=== PATIENT | female | born 1980 | race Caucasian/White ===

== ENCOUNTER 2017-08-05 09:55 | Emergency (ER) | payer BC ==
[2017-08-05 10:21] VITALS: BP 124/82
--- NOTE | 2017-08-05 10:59 | UC ---
Eye Complaint HPI - HPI Summary HPI Summary: TWO DAYS OF LEFT EYE CRUSTING, DISCHARGE REDNESS. HAD STREP THROAT TWO WEEKS AGO , WHICH RESOLVED. NO CHANGES IN VISION. NO PAIN WITH EYE MOVEMENT. NO TRAUMA. NO CONTACT LENS USAGE. - History of Current Complaint Chief Complaint: UCEye Stated Complaint: LEFT EYE COMPLAINT Time Seen by Provider: 08/05/17 10:40 Hx Obtained From: Patient Hx Last Menstrual Period: "I'm not very regular ... due for it." Onset/Duration: Gradual Onset, Lasting Hours Severity Initially: Mild Severity Currently: Mild Location of Injury: Conjunctiva Aggravating Factor(s): Nothing Alleviating Factor(s): Nothing Associated Signs And Symptoms: Positive: Drainage (Purulent) - Risk Factors Penetrating Injury Risk Factor: Negative Acute Glaucoma Risk Factors: Negative Optic Artery Occlusion Risk Factors: Negative - Allergies/Home Medications Allergies/Adverse Reactions: Allergies Allergy/AdvReac Type Severity Reaction Status Date / Time No Known Allergies Allergy Verified 08/05/17 10:16 PMH/Surg Hx/FS Hx/Imm Hx Previously Healthy: Yes - Surgical History Surgical History: Yes Surgery Procedure, Year, and Place: C-Sections, 2016 2006, [place]; Appendectomy, ~1997, [place] - Family History Known Family History: Negative: Diabetes Family History: no issues in biological family lineage - Social History Occupation: Works From/At Home Lives: With Family Alcohol Use: None Substance Use Type: None Smoking Status (MU): Never Smoked Tobacco - Immunization History Most Recent Influenza Vaccination: Not the 2016/2017 Season Review of Systems Constitutional: Negative Skin: Negative Eyes: Drainage, Eye Redness ENT: Negative Respiratory: Negative Cardiovascular: Negative Gastrointestinal: Negative Genitourinary: Negative Motor: Negative Neurovascular: Negative Musculoskeletal: Negative Neurological: Negative Psychological: Negative Is Patient Immunocompromised?: No All Other Systems Reviewed And Are Negative: Yes Physical Exam Triage Information Reviewed: Yes Appearance: Well-Appearing, No Pain Distress, Well-Nourished Vital Signs: Initial Vital Signs Temp 97.9 F 08/05/17 10:15 Pulse 96 08/05/17 10:15 Resp 18 08/05/17 10:15 BP 124/82 08/05/17 10:15 Vital Signs Reviewed: Yes Eyes: Positive: Conjunctiva Inflamed - LEFT, Discharge ENT: Positive: Normal ENT inspection, Pharynx normal, TMs normal Dental Exam: Normal Neck exam: Normal Neck: Positive: Supple, Nontender, No Lymphadenopathy Respiratory Exam: Normal Respiratory: Positive: Chest non-tender, Lungs clear, Normal breath sounds, No respiratory distress, No accessory muscle use Cardiovascular Exam: Normal Cardiovascular: Positive: RRR, No Murmur, Pulses Normal Abdominal Exam: Normal Musculoskeletal Exam: Normal Musculoskeletal: Positive: Strength Intact, ROM Intact Neurological Exam: Normal Psychological Exam: Normal Skin Exam: Normal Eye Complaint Course/Dx - Differential Dx/Diagnosis Differential Diagnosis/HQI/PQRI: Conjunctivitis Provider Diagnoses: LEFT CONJUNCTIVITIS Discharge - Discharge Plan Condition: Stable Disposition: HOME Prescriptions: Tobramycin 0.3% OPHTH.TAMI* 1 drop LEFT EYE Q4H #1 btl Patient Education Materials: Conjunctivitis (ED) Referrals: Marisol Perez MD [Primary Care Provider] -
== END 2017-08-05 11:03 | disposition home or self-care (01) ==
LOC: UCCORT 09:55
DX: H10.32 Unspecified acute conjunctivitis, left eye (principal)
CPT/HCPCS: 99212; G0463

== ENCOUNTER 2017-12-29 15:22 | Emergency (ER) | payer BC ==
[2017-12-29 16:05] VITALS: BP 134/83
--- NOTE | 2017-12-29 16:29 | UC ---
Complaint Female HPI - HPI Summary HPI Summary: PATIENT REPORTS 2 WEEKS OF URINARY FREQUENCY AND URGENCY. OVER THE LAST COUPLE OF DAYS HAS DEVELOPED BILATERAL LOW BACK PAIN THAT RADIATES AROUND THE FRONT TO HER LOWER ABDOMEN. SHE DENIES DYSURIA. NO FEVER OR NAUSEA. PATIENT HAD SURGICAL STERILIZATION AT HER IN 2015 SO NO CHANCE OF . NO H/ O KIDNEY STONES. - History Of Current Complaint Chief Complaint: UCGU Stated Complaint: URINARY/BACK PAIN Time Seen by Provider: 12/29/17 16:13 Hx Obtained From: Patient Hx Last Menstrual Period: HAS NOT HAD A PERIOD SINCE BEFORE GETTING . 21 MONTH OLD Onset/Duration: Gradual Onset, Lasting Weeks, Still Present Timing: Constant Severity Initially: Moderate Severity Currently: Moderate Pain Intensity: 6 Pain Scale Used: 0-10 Numeric Character: Sharp Aggravating Factor(s): Nothing Alleviating Factor(s): Nothing Associated Signs And Symptoms: Positive: Back Pain. Negative: Fever, Nausea, Vomiting(# Of Episodes =) - Allergies/Home Medications Allergies/Adverse Reactions: Allergies Allergy/AdvReac Type Severity Reaction Status Date / Time No Known Allergies Allergy Verified 12/29/17 15:57 PMH/Surg Hx/FS Hx/Imm Hx Endocrine History: Hypothyroidism - Surgical History Surgical History: Yes Surgery Procedure, Year, and Place: C-Sections, 2015 2006, [place]; Appendectomy, ~1997, - Family History Known Family History: Positive: Unknown - PT ADOPTED - Social History Alcohol Use: None Substance Use Type: None Smoking Status (MU): Never Smoked Tobacco - Immunization History Most Recent Influenza Vaccination: Not the 2016/2017 Season Review of Systems Constitutional: Negative Respiratory: Negative Cardiovascular: Negative Gastrointestinal: Abdominal Pain Genitourinary: Frequency, Urgency Musculoskeletal: Myalgia - BACK All Other Systems Reviewed And Are Negative: Yes Physical Exam Triage Information Reviewed: Yes Appearance: Well-Appearing, No Pain Distress, Well-Nourished Vital Signs: Initial Vital Signs Temp 98 F 12/29/17 15:57 Pulse 90 12/29/17 15:57 Resp 18 12/29/17 15:57 BP 134/83 12/29/17 15:57 Pulse Ox 99 12/29/17 15:57 Vital Signs Reviewed: Yes Eyes: Positive: Conjunctiva Clear ENT: Positive: Hearing grossly normal Neck: Positive: Supple Respiratory: Positive: No respiratory distress, No accessory muscle use Cardiovascular: Positive: Pulses Normal Abdomen Description: Positive: Soft, Other: - SUPRAPUBIC TTP. Negative: CVA Tenderness (R), CVA Tenderness (L), Distended, Guarding Musculoskeletal: Positive: No Edema Neurological: Positive: Alert Psychological: Positive: Age Appropriate Behavior Skin: Negative: rashes Diagnostics - Laboratory Diagnostic Studies Completed/Ordered: URINE DIP SP. GR. 1.010, 3+ BLOOD, 1+ PROTEIN, 1+ LEUKS Complaint Female Dx - Differential Dx/Diagnosis Provider Diagnoses: HEMATURIA/BACK PAIN - Physician Notifications Discussed Patient Care With: José Luis Rascon - TRANSFER OF CARE AT SHIFT CHANGE Time Discussed With Above Provider: 17:05 Discharge - Sign-Out/Discharge Documenting (check all that apply): Sign-Out Patient Signing out patient TO: José Luis Rascon - Discharge Plan Condition: Stable Referrals: Marisol Perez MD [Primary Care Provider] - - Billing Disposition and Condition Condition: STABLE
--- NOTE | 2017-12-29 17:30 | RAD ---
Indication: Hematuria, bilateral flank pain. CT of the abdomen and pelvis was performed without oral or IV contrast administration. Coronal and sagittal reconstructed images were obtained. Lung bases demonstrate no pleural fluid, nodules or masses. Heart is of normal size without evidence of pericardial effusion. Liver is normal in size. No focal lesions or intrahepatic duct dilatation is noted. It is diffusely decreased in density consistent with hepatic steatosis. The gallbladder demonstrates multiple calcified gallstones. No pericholecystic fluid or wall thickening is noted. Pancreas demonstrates no mass or pancreatic duct dilatation. The common duct is not dilated. Spleen is normal in size. No adrenal masses are noted. The kidneys demonstrates no hydronephrosis or hydroureter. No evidence of calculi are noted in either ureter. Urinary bladder is partially collapsed. No retroperitoneal adenopathy is noted. No dilated loops of bowel are noted. The colon is filled with stool. Mesenteric lymph nodes are noted adjacent to the cecum. The uterus and ovaries demonstrates bilateral tubal ligation clips. No adnexal masses are noted. IMPRESSION: Hepatic steatosis. No evidence of obstructive uropathy is noted. Cholelithiasis without biliary duct dilatation. Nonspecific mesenteric lymph nodes adjacent to the cecum.
--- NOTE | 2017-12-29 17:45 | UC ---
- Progress Note Progress Note: signed out to me pending CT reading - EKG/XRAY/CT Xray Comments: Cholelithiasis without biliary duct dilatation. CT: Hepatic steatosis. No evidence of obstructive uropathy is noted. - Additional EKG/XRAY/Consults Comments: Nonspecific mesenteric lymph nodes adjacent to cecum Re-Evaluation - Re-Evaluation First Eval Re-Evaluation Time: 17:44 Change: Unchanged - comfortable/in no distress Course/Dx - Course Course Of Treatment: advised of CT results - Provider Notifications Time Discussed With Above Provider: 17:05 Discharge - Sign-Out/Discharge Documenting (check all that apply): Discharge/Admit/Transfer - Discharge Plan Condition: Stable Disposition: HOME Prescriptions: Cephalexin CAP* [Keflex CAP*] 500 mg PO BID #14 cap Phenazopyridine TAB* [Pyridium TAB*] 100 mg PO TID #6 tab Patient Education Materials: Gallstones (ED), Hematuria (ED), Dysuria (ED) Referrals: Marisol Perez MD [Primary Care Provider] - 7 Days (recheck for repeat urine analysis and discussion of CT results) Prema Soliman MD [Medical Doctor] - 2 Weeks (to discuss best approach for your gallstones) - Billing Disposition and Condition Condition: STABLE Disposition: HOME
== END 2017-12-29 17:53 | disposition home or self-care (01) ==
LOC: UCCORT 15:22
DX: R31.9 Hematuria, unspecified (principal); M54.9 Dorsalgia, unspecified; K80.20 Calculus of gallbladder without cholecystitis without obstruction; K76.0 Fatty (change of) liver, not elsewhere classified
CPT/HCPCS: 74176; 81003; 87077; 87086; 87186; 99212; G0463

== ENCOUNTER 2018-04-07 10:49 | Emergency (ER) | payer BC ==
[2018-04-07 11:07] VITALS: BP 145/87
--- NOTE | 2018-04-07 11:20 | UC ---
Skin Complaint HPI - HPI Summary HPI Summary: Pt c/o mild erythema and swelling at new tattoo site on right foot, lateral dorsal aspect. Pt is breasfeeding. Pt reporst that she observed 3d artist open sealed, brand new packaging with each needle used. - History of Current Complaint Chief Complaint: UCSkin Time Seen by Provider: 04/07/18 10:59 Stated Complaint: SKIN CONCERN Hx Obtained From: Patient Hx Last Menstrual Period: HAS NOT HAD A PERIOD SINCE BEFORE GETTING . 21 MONTH OLD ?: No Onset/Duration: Gradual Onset, Lasting Days Skin Exposure Onset/Duration: Weeks Ago Timing: Constant Onset Severity: Mild Current Severity: Mild Pain Intensity: 0 Location: Discrete Character: Pain, Redness, Raised Aggravating Factor(s): Touch Alleviating Factor(s): Nothing Associated Signs & Symptoms: Positive: Tenderness Related History: Other: - new tattoo - Allergy/Home Medications Allergies/Adverse Reactions: Allergies Allergy/AdvReac Type Severity Reaction Status Date / Time No Known Allergies Allergy Verified 04/07/18 11:06 Home Medications: Home Medications Cranberry 500 mg PO DAILY 04/07/18 [History Confirmed 04/07/18] Multivitamins/Minerals TAB* [Theragran/minerals TAB*] 1 tab PO DAILY 04/07/18 [ History Confirmed 04/07/18] [place]-3 Fatty Acids/Fish Oil [Fish Oil 1,000 mg Capsule] 1 each PO DAILY [History Confirmed 04/07/18] Review of Systems Constitutional: Negative Skin: Other - erythema, mild swelling, Eyes: Negative ENT: Negative Respiratory: Negative Cardiovascular: Negative Gastrointestinal: Negative Genitourinary: Negative Motor: Negative Neurovascular: Negative Musculoskeletal: Negative Neurological: Negative Psychological: Negative Is Patient Immunocompromised?: No All Other Systems Reviewed And Are Negative: Yes PMH/Surg Hx/FS Hx/Imm Hx Previously Healthy: Yes - Surgical History Surgical History: Yes Surgery Procedure, Year, and Place: C-Sections, 2016 2006, ; Appendectomy, ~ - Family History Known Family History: Positive: Unknown - PT ADOPTED - Social History Occupation: Employed Full-time Lives: With Family Alcohol Use: None Substance Use Type: None Smoking Status (MU): Never Smoked Tobacco Have You Smoked in the Last Year: No - Immunization History Most Recent Influenza Vaccination: Not the Season Physical Exam Triage Information Reviewed: Yes Appearance: Well-Appearing, Pain Distress Vital Signs: Initial Vital Signs Temp 98.2 F 04/07/18 11:02 Pulse 98 04/07/18 11:02 Resp 18 04/07/18 11:02 BP 145/87 04/07/18 11:02 Pulse Ox 100 04/07/18 11:02 Vital Signs Reviewed: Yes Eye Exam: Normal ENT: Positive: Hearing grossly normal Dental Exam: Normal Neck exam: Normal Respiratory: Positive: No respiratory distress Musculoskeletal Exam: Normal Neurological Exam: Normal Psychological Exam: Normal Skin Exam: Other - butterfly tatto right foot, lateral dorsal , mild swelling under one blue butterfly with mild tenderness and erythema and c/o tenderness with examination. Course/Dx - Differential Diagnoses - Skin Complaint Differential Diagnoses: Cellulitis, MRSA - Diagnoses Provider Diagnoses: Cellulitis right foot Discharge - Sign-Out/Discharge Documenting (check all that apply): Patient Departure - Discharge Plan Condition: Stable Disposition: HOME Prescriptions: Cephalexin CAP* [Keflex 500 CAP*] 500 mg PO Q12H #20 cap Patient Education Materials: Cellulitis (ED) Referrals: Marisol Perez MD [Primary Care Provider] - If Needed - Billing Disposition and Condition Condition: STABLE Disposition: Home
== END 2018-04-07 11:27 | disposition home or self-care (01) ==
LOC: UCCORT 10:49
DX: L03.115 Cellulitis of right lower limb (principal)
CPT/HCPCS: 99212; G0463

== ENCOUNTER 2018-05-10 15:00 | Emergency (ER) | payer BC ==
[2018-05-10 15:38] VITALS: BP 137/77
--- NOTE | 2018-05-10 15:40 | UC ---
Lower Extremity/Ankle HPI - HPI Summary HPI Summary: 37-year-old otherwise healthy female presents one day after falling at her neighbor's home. She states her foot got caught under her and she sustained abrasion with bleeding as well as discomfort with walking. She has not had appreciable swelling and has been able to walk, though with a limp. She denies any head injuries or injury to any other extremity. Her tetanus is up-to-date. She is breast-feeding and has only taken Tylenol. - History of Current Complaint Stated Complaint: ANKLE INJURY S/P FALL Time Seen by Provider: 05/10/18 15:31 Hx Obtained From: Patient Hx Last Menstrual Period: HAS NOT HAD A PERIOD SINCE BEFORE GETTING . 21 MONTH OLD INFANT - Allergies/Home Medications Allergies/Adverse Reactions: Allergies Allergy/AdvReac Type Severity Reaction Status Date / Time No Known Allergies Allergy Verified 04/07/18 11:06 Home Medications: Home Medications Acetaminophen [Tylenol] 325 mg PO Q12H 05/10/18 [History Confirmed 05/10/18] PMH/Surg Hx/FS Hx/Imm Hx - Additional Past Medical History Additional PMH: Currently breast-feeding Previously Healthy: Yes - Surgical History Surgical History: Yes Surgery Procedure, Year, and Place: C-Sections, 2016 2006, [place]; Appendectomy, ~1997, [place] - Family History Known Family History: Negative: Cardiac Disease, Blood Disorder - Social History Alcohol Use: None Substance Use Type: None Smoking Status (MU): Never Smoked Tobacco Have You Smoked in the Last Year: No - Immunization History Most Recent Influenza Vaccination: Not the 2016/2017 Season Review of Systems Constitutional: Negative Skin: Other - Abrasion Motor: Decreased ROM, Other - Tenderness to the left ankle Neurovascular: Negative Musculoskeletal: Arthralgia Neurological: Negative All Other Systems Reviewed And Are Negative: Yes Physical Exam Triage Information Reviewed: Yes Appearance: Well-Appearing, No Pain Distress Vital Signs Reviewed: Yes Neck: Positive: Supple Respiratory: Positive: Lungs clear Cardiovascular: Positive: RRR Musculoskeletal: Positive: Other: - Tenderness at the left anterior talofibular ligament. No pain at the malleoli, talus, cuboid or fifth metatarsal head. Skin: Positive: Other - Abrasion to the anterior left ankle with small area of skin avulsion. Also more superficial abrasion to the mid left anterior sethi Procedures - Procedure Summary Procedure Summary: Wound Care: The abraded areas of the left sethi and ankle were irrigated and scrubbed clean with soap and water. The ankle was dressed with Xeroform gauze and wrapped with Kerlix. It was secured with an Johnson wrap to help the ankle sprain. She tolerated this well without complication. Diagnostics - Radiology left ankle Xray Interpretation: No Acute Changes Radiology Interpretation Completed By: ED Physician Lower Extremity Course/Dx - Course Course Of Treatment: Patient with abrasions that require the most care. Likely first degree ankle sprain. Johnson wrap applied. Treat symptomatically. - Differential Dx/Diagnosis Differential Diagnosis/HQI/PQRI: Other - Fracture versus sprain Provider Diagnoses: First degree left ankle sprain. Abrasion to left sethi, left ankle Discharge - Sign-Out/Discharge Documenting (check all that apply): Patient Departure All imaging exams completed and their final reports reviewed: No - Discharge Plan Condition: Improved Disposition: HOME Patient Education Materials: Ankle Sprain (ED), Abrasion (ED) Referrals: Marisol Perez MD [Primary Care Provider] - Additional Instructions: Weight-bearing as tolerated. Flat foot walking and increase range of motion as directed. Ice, ibuprofen or Tylenol for discomfort. Dress the abrasions with bacitracin ointment 2-3 times daily. Return with concern for infection, worse, new symptoms or other concerns. Follow up with your doctor in 1 week's time if not better. - Billing Disposition and Condition Condition: IMPROVED Disposition: Home - Attestation Statements Document Initiated by Scribe: No
[2018-05-10] MEDS ORDERED: Ibuprofen TAB* 400 MG PO ONE (15:41)
--- NOTE | 2018-05-10 16:23 | RAD ---
Indication: Lateral LEFT ankle pain post fall down stairs. Abrasion to the anterior LEFT foot and ankle. Comparison: No relevant prior exams available on the [facility] for comparison. Technique: AP and lateral views LEFT ankle. Report: Normal articular alignment. Negative for fracture. Os peroneum accessory ossicle and small heel spurs. Mild lateral soft tissue swelling. IMPRESSION: #. Mild lateral soft tissue swelling without evidence for fracture or malalignment.
--- NOTE | 2018-05-11 06:50 | UC ---
Discharge - Sign-Out/Discharge Documenting (check all that apply): Post-Discharge Follow Up All imaging exams completed and their final reports reviewed: Yes - Discharge Plan Condition: Improved Disposition: HOME Patient Education Materials: Ankle Sprain (ED), Abrasion (ED) Forms: *Work Release Referrals: Marisol Perez MD [Primary Care Provider] - Additional Instructions: Weight-bearing as tolerated. Flat foot walking and increase range of motion as directed. Ice, ibuprofen or Tylenol for discomfort. Dress the abrasions with bacitracin ointment 2-3 times daily. Return with concern for infection, worse, new symptoms or other concerns. Follow up with your doctor in 1 week's time if not better. - Billing Disposition and Condition Condition: IMPROVED Disposition: Home
== END 2018-05-10 15:56 | disposition home or self-care (01) ==
LOC: UCCORT 15:00
DX: S93.402A Sprain of unspecified ligament of left ankle, initial encounter (principal); S80.812A Abrasion, left lower leg, initial encounter; S90.512A Abrasion, left ankle, initial encounter; W19.XXXA Unspecified fall, initial encounter; Y93.01 Activity, walking, marching and hiking; Y92.009 Unspecified place in unspecified non-institutional (private) residence as the place of occurrence of the external cause
CPT/HCPCS: 99212; A9270-GY; G0463

== ENCOUNTER 2018-09-20 15:49 | Emergency (ER) | payer BC ==
[2018-09-20 16:19] VITALS: BP 142/97
--- NOTE | 2018-09-20 16:39 | UC ---
UC General HPI - HPI Summary HPI Summary: 3 WEEK HX OF WORSENING COUGH WITH CHEST CONGESTION AND SOME SOB. NO CP OR HX ASTHMA. UNCERTAIN IF FEVER. NO RELIEF WITH OTC TX'S. - History of Current Complaint Chief Complaint: UCRespiratory Stated Complaint: COUGH, CHEST CONGESTION Time Seen by Provider: 09/20/18 16:33 Hx Obtained From: Patient Hx Last Menstrual Period: tubal in 2015 Onset/Duration: Gradual Onset Timing: Constant Pain Intensity: 0 Associated Signs & Symptoms: Negative: Chest Pain, Diarrhea, Nausea, Vomiting - Allergy/Home Medications Allergies/Adverse Reactions: Allergies Allergy/AdvReac Type Severity Reaction Status Date / Time No Known Allergies Allergy Verified 09/20/18 16:18 PMH/Surg Hx/FS Hx/Imm Hx Endocrine History: Thyroid Disease - Surgical History Surgical History: Yes Surgery Procedure, Year, and Place: C-Sections, 2015 2006, [place]; Appendectomy, , [place] - Family History Known Family History: Negative: Cardiac Disease, Blood Disorder - Social History Alcohol Use: None Substance Use Type: None Smoking Status (MU): Never Smoked Tobacco Have You Smoked in the Last Year: No - Immunization History Most Recent Influenza Vaccination: Not the 2016/2017 Season Vaccination Up to Date: Yes Review of Systems All Other Systems Reviewed And Are Negative: Yes Constitutional: Positive: Chills Skin: Positive: Negative Eyes: Positive: Negative ENT: Positive: Negative Respiratory: Positive: Shortness Of Breath, Cough Cardiovascular: Positive: Negative Gastrointestinal: Positive: Negative Genitourinary: Positive: Negative Motor: Positive: Negative Neurovascular: Positive: Negative Musculoskeletal: Positive: Negative Neurological: Positive: Negative Psychological: Positive: Negative Physical Exam Triage Information Reviewed: Yes Appearance: Well-Appearing Vital Signs: Initial Vital Signs Temp 98 F 09/20/18 16:12 Pulse 106 09/20/18 16:12 Resp 16 09/20/18 16:12 BP 142/97 09/20/18 16:12 Pulse Ox 98 09/20/18 16:12 Vital Signs Reviewed: Yes Eyes: Positive: Conjunctiva Clear ENT: Positive: Pharynx normal, TMs normal. Negative: Nasal congestion, Nasal drainage Neck: Positive: Supple, Nontender, No Lymphadenopathy. Negative: Nuchal Rigidity Respiratory: Positive: No respiratory distress, Decreased breath sounds, Other: - HARSH NPC Cardiovascular: Positive: RRR - RATE=96, No Murmur Abdomen Description: Positive: Nontender, No Organomegaly, Soft Bowel Sounds: Positive: Present Musculoskeletal: Positive: ROM Intact Neurological: Positive: Alert Psychological: Positive: Age Appropriate Behavior Skin Exam: Normal Course/Dx - Course Course Of Treatment: GIVEN DURATION OF ILLNESS, WORSENING AND SYMPTOMS WILL TX FOR PRESUMPTIVE BACTERIAL COMPONENT. - Diagnoses Provider Diagnosis: Bronchitis Discharge - Sign-Out/Discharge Documenting (check all that apply): Patient Departure All imaging exams completed and their final reports reviewed: No Studies - Discharge Plan Condition: Stable Disposition: HOME Prescriptions: Albuterol HFA INHALER* [Ventolin HFA Inhaler*] 2 puff INH Q6H #1 mdi Azithromycin TAB* [Zithromax TAB (Z-PRASHANTH) 250 mg #6 tabs] 2 tab PO .TODAY, THEN 1 DAILY #1 prashanth predniSONE [Prednisone 20 MG TAB] 40 mg PO DAILY 5 Days #10 tablet Patient Education Materials: Acute Bronchitis (ED) Referrals: Marisol Perez MD [Primary Care Provider] - 7 Days - Billing Disposition and Condition Condition: STABLE Disposition: Home
== END 2018-09-20 16:43 | disposition home or self-care (01) ==
LOC: UCCORT 15:49
DX: J40 Bronchitis, not specified as acute or chronic (principal)
CPT/HCPCS: 99212; G0463